=== PATIENT | female | born 1980 | race African-American/Black ===

== ENCOUNTER 2017-12-28 11:00 | Emergency (ER) | payer MEDICARE, MEDICAID ==
[~2017-12-28] VITALS: Ht 170.2 cm; Wt 97.0 kg
[2017-12-28 12:20] VITALS: BP 126/66
== END 2017-12-28 12:21 | disposition home or self-care (01) ==
LOC: ER 11:35
DX: J06.9 Acute upper respiratory infection, unspecified (principal); I10 Essential (primary) hypertension
CPT/HCPCS: 99283

== ENCOUNTER 2022-02-12 12:27 | Emergency (ER) | payer MEDICARE, MEDICAID ==
[~2022-02-12] VITALS: Ht 172.7 cm; Wt 92.0 kg
[2022-02-12 13:38] LABS: CLARITY URINE CLEAR (CLEAR); COLOR URINE YELLOW (YELLOW); KETONES URINE NEGATIVE (NEGATIVE); LEUKOCYTE ESTERASE URINE NEGATIVE (NEGATIVE); NITRITE URINE NEGATIVE (NEGATIVE); OCCULT BLOOD URINE NEGATIVE (NEGATIVE); PROTEIN URINE NEGATIVE (NEGATIVE); SPECIFIC GRAVITY URINE 1.011 (1.005-1.030)
[2022-02-12 16:13] LABS: BASOPHILS % 1.1 % (0.0-2.0); HEMATOCRIT. 21.7 % (36.0-48.0); LYMPHOCYTES % 29.3 % (20.0-50.0); MEAN CORPUSCULAR HEMOGLOBIN 18.4 pg (28.0-32.0); MEAN CORPUSCULAR VOLUME 60.5 fL (81.0-99.0); MEAN PLATELET VOLUME 7.4 fl (7.4-10.4); MONOCYTES % 9.7 % (2.0-8.0); NEUTROPHILS % 58.9 % (40.0-76.0); PLATELET 617 x1000/uL (130-400); RED BLOOD CELL COUNT 3.59 mill/uL (4.2-5.4)
[2022-02-12 16:21] LABS: HEMOGLOBIN. 6.6 g/dL (12.0-16.0)
[2022-02-12 16:24] LABS: HCG SCREEN NEGATIVE
[2022-02-12 16:26] LABS: CHLORIDE 107 mEq/L (98-107)
[2022-02-12 16:37] LABS: PLATELET ESTIMATE INCREASED
[2022-02-12 16:39] LABS: B-HCG QUANTITATIVE < 1 mIU/mL (<3)
[2022-02-12 23:00] VITALS: BP 135/78
== END 2022-02-12 23:30 | disposition home or self-care (01) ==
LOC: ER 12:27
DX: D64.9 Anemia, unspecified (principal); R10.32 Left lower quadrant pain; I10 Essential (primary) hypertension; Z98.51 Tubal ligation status
CPT/HCPCS: 36415; 71045; 76830; 76856; 80053; 81003; 84702; 84703; 85025; 86850; 86900; 86920; 93976; 99285; P9016